=== PATIENT | male | born 1950 | race Caucasian/White ===

== ENCOUNTER 2019-12-31 17:16 | Inpatient (IN) ==
[2019-12-31] MEDS ORDERED: MORPHINE 4 MG/1 ML VIAL IV STA (18:28)
[2019-12-31] MEDS ORDERED: ONDANSETRON 4 MG/2 ML VIAL IV ONE (18:28)
[2019-12-31] MEDS ORDERED: SODIUM CHLORIDE 0.9% 1,000 ML IV STA (18:28)
[2019-12-31 18:37] LABS: Basophils % 0.6 % (0.0-0.8); Eosinophils # 0.1 10*3/uL (0.0-0.87); Eosinophils % 3.8 % (0.00-10.9); Hematocrit 32.5 VOL% (42.0-52.0); Hemoglobin 10.3 GM/DL (14.0-18.0); Immature Granulocytes % 0.9 %; Immature Granulocytes Absolute 0.03 #; Lymphocytes # 0.5 10*3/uL (1.4-4.0); Lymphocytes % 13.9 % (21.2-54.2); Mean Corpuscular HGB Conc 31.7 GM/DL (32-36); Mean Corpuscular Volume 99.4 FL (87-102); Mean Platelet Volume 10.4 FL (9.6-12.0); Neutrophils % 71.8 % (38.7-73.9); Platelet Count 109 T/CUMM (130-400); Red Blood Count 3.27 MC/CUMM (3.8-5.5); Red Cell Distribution Width 16.9 % (9.3-17.3); White Blood Count 3.5 T/CUMM (4-12)
[2019-12-31 18:44] LABS: INR 1.2; PT Patient Result 12.5 SECS (9.8-11.9); Partial Thromboplastin Time 29.8 SECS (23.9-33.8)
[2019-12-31 18:48] LABS: Albumin 2.5 G/DL (3.4-5.0); Bilirubin,Total 1.2 MG/DL (0.2-1.0); Calcium 9.2 MG/DL (8.5-10.1); Total Protein 6.9 G/DL (6.4-8.3)
[2019-12-31] MEDS ORDERED: ZALEPLON 5 MG CAPSULE PO PRN (21:56)
[2019-12-31] MEDS ORDERED: DEXTROSE 50% 25 GM/50 ML VIAL IV PRN ×2 (21:56)
[2019-12-31] MEDS ORDERED: guaiFENesin/DM ER 600-30 MG TABLET PO PRN (21:56)
[2019-12-31] MEDS ORDERED: ONDANSETRON 4 MG/2 ML VIAL IV PRN (21:56)
[2019-12-31] MEDS ORDERED: GLUCAGON 1 MG VIAL IM PRN ×2 (21:56)
[2019-12-31] MEDS ORDERED: NICOTINE 21 MG/24 HR PATCH TRANSDERM PRN (21:56)
[2019-12-31] MEDS ORDERED: diphenhydrAMINE CAP 25 MG CAPSULE PO PRN (21:56)
[2019-12-31] MEDS: MORPHINE 4 MG/1 ML VIAL IV PRN (23:20)
[2019-12-31] MEDS: SODIUM CHLORIDE 0.9% 1,000 ML IV SCH (23:22)
[2020-01-01] MEDS: TACROLIMUS 0.5 MG CAPSULE PO SCH ×4 (02:06→19:12)
[2020-01-01] MEDS: MORPHINE 4 MG/1 ML VIAL IV PRN (05:13)
[2020-01-01 06:56] LABS: Basophils % 0.9 % (0.0-0.8); Eosinophils # 0.3 10*3/uL (0.0-0.87); Eosinophils % 7.5 % (0.00-10.9); Hemoglobin 9.3 GM/DL (14.0-18.0); Immature Granulocytes % 0.2 %; Immature Granulocytes Absolute 0.01 #; Lymphocytes # 0.6 10*3/uL (1.4-4.0); Lymphocytes % 13.6 % (21.2-54.2); Mean Corpuscular HGB Conc 32.1 GM/DL (32-36); Mean Corpuscular Volume 99.7 FL (87-102); Mean Platelet Volume 10.2 FL (9.6-12.0); Monocytes % 8.2 % (1.7-12.7); Neutrophils % 69.6 % (38.7-73.9); Platelet Count 101 T/CUMM (130-400); Red Blood Count 2.91 MC/CUMM (3.8-5.5); Red Cell Distribution Width 16.8 % (9.3-17.3); White Blood Count 4.3 T/CUMM (4-12)
[2020-01-01 07:32] LABS: Calcium 8.9 MG/DL (8.5-10.1); Osmolality,Calculated 280.7 MOS/KG (273-304)
[2020-01-01] MEDS: INSULIN LISPRO 100 UNIT/ML SUBCUT SCH ×4 (08:55→22:13)
[2020-01-01] MEDS ORDERED: LIPASE PROTEASE AMYLASE PO SCH (09:00)
[2020-01-01] MEDS: LACTULOSE 20 GM/30 ML UDCUP PO SCH ×3 (09:00→21:36)
[2020-01-01] MEDS ORDERED: [UNRECOGNIZED DRUG - OTHER] PO SCH (09:00)
[2020-01-01] MEDS: SODIUM CHLORIDE 0.9% 1,000 ML IV SCH (10:30)
[2020-01-01] MEDS: SEVELAMER CARBONATE 800 MG TABLET PO SCH ×3 (11:00→17:57)
[2020-01-01] MEDS: DOCUSATE SODIUM 100 MG CAPSULE PO SCH ×2 (11:00→21:36)
[2020-01-01] MEDS: CETIRIZINE 10 MG TABLET PO SCH ×2 (11:00→21:36)
[2020-01-01] MEDS: PANTOPRAZOLE 40 MG TABLET PO SCH (11:00)
[2020-01-01] MEDS ORDERED: OMEGA 3 ACID ETHYL ESTERS 1 GM CAPSULE PO SCH (11:30)
[2020-01-01] MEDS: RIFAXIMIN 550 MG TABLET PO SCH ×2 (13:19→21:36)
[2020-01-01] MEDS: [UNRECOGNIZED DRUG - OTHER] PO SCH (17:58)
[2020-01-01] MEDS: LIPASE PROTEASE AMYLASE PO SCH (17:58)
[2020-01-02 07:23] LABS: Basophils # 0.1 10*3/uL (0.0-0.2); Basophils % 1.1 % (0.0-0.8); Eosinophils # 0.4 10*3/uL (0.0-0.87); Hematocrit 30.4 VOL% (42.0-52.0); Hemoglobin 9.7 GM/DL (14.0-18.0); Immature Granulocytes % 0.4 %; Immature Granulocytes Absolute 0.02 #; Lymphocytes # 0.6 10*3/uL (1.4-4.0); Lymphocytes % 10.5 % (21.2-54.2); Mean Corpuscular HGB Conc 31.9 GM/DL (32-36); Mean Corpuscular Volume 100.3 FL (87-102); Mean Platelet Volume 10.3 FL (9.6-12.0); Monocytes % 9.1 % (1.7-12.7); Neutrophils % 71.9 % (38.7-73.9); Platelet Count 110 T/CUMM (130-400); Red Blood Count 3.03 MC/CUMM (3.8-5.5); Red Cell Distribution Width 16.8 % (9.3-17.3); White Blood Count 5.6 T/CUMM (4-12)
[2020-01-02 08:03] LABS: Calcium 8.8 MG/DL (8.5-10.1)
[2020-01-02] MEDS: INSULIN LISPRO 100 UNIT/ML SUBCUT SCH ×4 (08:10→23:42)
[2020-01-02] MEDS: LACTULOSE 20 GM/30 ML UDCUP PO SCH ×3 (08:25→23:41)
[2020-01-02] MEDS: TACROLIMUS 0.5 MG CAPSULE PO SCH ×2 (08:25→18:42)
[2020-01-02] MEDS: PANTOPRAZOLE 40 MG TABLET PO SCH (08:26)
[2020-01-02] MEDS: DOCUSATE SODIUM 100 MG CAPSULE PO SCH ×2 (08:26→23:41)
[2020-01-02] MEDS: SEVELAMER CARBONATE 800 MG TABLET PO SCH ×3 (08:26→16:38)
[2020-01-02] MEDS: RIFAXIMIN 550 MG TABLET PO SCH ×2 (08:26→23:41)
[2020-01-02] MEDS: CETIRIZINE 10 MG TABLET PO SCH ×2 (08:27→23:41)
[2020-01-02] MEDS: [UNRECOGNIZED DRUG - OTHER] PO SCH ×3 (08:41→16:38)
[2020-01-02] MEDS: FATTY ACIDS PO SCH (08:41)
[2020-01-02] MEDS: OMEGA PO SCH (08:41)
[2020-01-02] MEDS: LIPASE PROTEASE AMYLASE PO SCH ×3 (08:41→16:38)
[2020-01-02 14:09] LABS: Hepatitis B Core IgM Quant 0.06 Index; Hepatitis B Surface Ag Quant < 0.10 Index; Hepatitis B Surface Ag Result Negative (Negative); Hepatitis C Virus Ab Result Negative (Negative)
[2020-01-03] MEDS: INSULIN LISPRO 100 UNIT/ML SUBCUT SCH ×4 (07:28→21:14)
[2020-01-03] MEDS: LIPASE PROTEASE AMYLASE PO SCH ×4 (08:11→19:16)
[2020-01-03] MEDS: [UNRECOGNIZED DRUG - OTHER] PO SCH ×4 (08:11→19:16)
[2020-01-03] MEDS: CETIRIZINE 10 MG TABLET PO SCH ×2 (08:12→21:14)
[2020-01-03] MEDS: LACTULOSE 20 GM/30 ML UDCUP PO SCH ×3 (08:12→21:12)
[2020-01-03] MEDS: FATTY ACIDS PO SCH (08:12)
[2020-01-03] MEDS: SEVELAMER CARBONATE 800 MG TABLET PO SCH ×3 (08:12→17:50)
[2020-01-03] MEDS: PANTOPRAZOLE 40 MG TABLET PO SCH (08:12)
[2020-01-03] MEDS: RIFAXIMIN 550 MG TABLET PO SCH ×2 (08:12→21:13)
[2020-01-03] MEDS: DOCUSATE SODIUM 100 MG CAPSULE PO SCH ×2 (08:12→21:13)
[2020-01-03] MEDS: OMEGA PO SCH (08:12)
[2020-01-03 08:21] LABS: Basophils # 0.1 10*3/uL (0.0-0.2); Basophils % 0.8 % (0.0-0.8); Eosinophils # 0.1 10*3/uL (0.0-0.87); Eosinophils % 2.2 % (0.00-10.9); Hematocrit 31.7 VOL% (42.0-52.0); Hemoglobin 10.1 GM/DL (14.0-18.0); Immature Granulocytes % 0.5 %; Immature Granulocytes Absolute 0.03 #; Lymphocytes # 0.7 10*3/uL (1.4-4.0); Lymphocytes % 11.5 % (21.2-54.2); Mean Corpuscular HGB Conc 31.9 GM/DL (32-36); Mean Corpuscular Volume 99.1 FL (87-102); Mean Platelet Volume 10.7 FL (9.6-12.0); Monocytes % 8.8 % (1.7-12.7); Neutrophils % 76.2 % (38.7-73.9); Platelet Count 105 T/CUMM (130-400); Red Cell Distribution Width 16.6 % (9.3-17.3); White Blood Count 5.9 T/CUMM (4-12)
[2020-01-03 08:39] LABS: Hypochromasia 1+; Microcytosis 1+; Platelet Estimate Decreased
[2020-01-03 08:41] LABS: Calcium 8.7 MG/DL (8.5-10.1); Osmolality,Calculated 272.5 MOS/KG (273-304)
[2020-01-03] MEDS: TACROLIMUS 0.5 MG CAPSULE PO SCH ×2 (08:46→18:40)
[2020-01-03] MEDS ORDERED: ROPIVACAINE 0.5% 30 ML VIAL ONE (12:54)
[2020-01-03] MEDS ORDERED: ceFAZolin 1,000 MG VIAL ONE (14:05)
[2020-01-03] MEDS ORDERED: VANCOMYCIN 1,000 MG VIAL ONE (14:05)
[2020-01-03] MEDS ORDERED: BACITRACIN 50,000 UNIT VIAL ONE (14:55)
[2020-01-03] MEDS ORDERED: SODIUM CHLORIDE 0.9% 1,000 ML IV PRN (15:56)
[2020-01-03] MEDS ORDERED: SUGAMMADEX 200 MG/2 ML VIAL IV ONE (15:57)
[2020-01-03] MEDS ORDERED: ALBUTEROL/IPRATROPIUM 3 ML NEB RESP TX ONE ×2 (16:21→16:46)
[2020-01-03] MEDS ORDERED: ePHEDrine 50 MG/ML VIAL ONE (16:37)
[2020-01-03] MEDS ORDERED: GLYCOPYRROLATE 0.4 MG/2 ML VIAL ONE (16:37)
[2020-01-03] MEDS ORDERED: LIDOCAINE 2% 5 ML VIAL ONE (16:37)
[2020-01-03] MEDS ORDERED: fentaNYL 100 MCG/2 ML VIAL ONE (16:37)
[2020-01-03] MEDS ORDERED: SEVOFLURANE 1 UNIT/15 MINUTE INH ONE (16:37)
[2020-01-03] MEDS ORDERED: MIDAZOLAM 2 MG/2 ML VIAL ONE (16:37)
[2020-01-03] MEDS ORDERED: ETOMIDATE 40 MG/20 ML VIAL IV ONE (16:37)
[2020-01-03] MEDS ORDERED: PHENYLEPHRINE 10 MG/1 ML VIAL IV ONE (16:37)
[2020-01-03] MEDS ORDERED: NEOSTIGMINE 10 MG/10 ML VIAL ONE (16:38)
[2020-01-03] MEDS ORDERED: SODIUM CHLORIDE 0.9% 250 ML IV ONE (16:38)
[2020-01-03] MEDS ORDERED: ROCURONIUM 100 MG/10 ML VIAL IV ONE (16:38)
[2020-01-03 16:58] LABS: ABG HCO3 20.3 MMOL/L (20-26); ABG Oxygen Saturation 94.8 % (95-100); ABG PCO2 44.8 MM HG (35-48); ABG PH 7.291 (7.35-7.45); ABG PO2 85.7 MM HG (80-95); ABG TCO2 19.8 MMOL/L (23-27)
[2020-01-03] MEDS ORDERED: PHENYLEPHRINE DRIP 40 MG/250 ML PREMIX IV PRN (17:30)
[2020-01-03] MEDS ORDERED: PHENYLEPHRINE DRIP 40 MG/250 ML PREMIX IV ONE (17:37)
[2020-01-03] MEDS: ceFAZolin 1,000 MG in SYRINGE 1 EACH IV SCH (17:47)
[2020-01-03] MEDS: MORPHINE 4 MG/1 ML VIAL IV PRN (19:58)
[2020-01-03 20:51] LABS: Hematocrit 31.6 VOL% (42.0-52.0); Hemoglobin 9.8 GM/DL (14.0-18.0)
[2020-01-03] MEDS: APIXABAN 5 MG TABLET PO SCH (21:12)
[2020-01-04] MEDS: ceFAZolin 1,000 MG in SYRINGE 1 EACH IV SCH ×4 (00:31→18:20)
[2020-01-04] MEDS: MORPHINE 4 MG/1 ML VIAL IV PRN ×2 (04:27→22:06)
[2020-01-04 08:09] LABS: Basophils # 0.1 10*3/uL (0.0-0.2); Basophils % 0.7 % (0.0-0.8); Eosinophils # 0.2 10*3/uL (0.0-0.87); Eosinophils % 1.5 % (0.00-10.9); Hematocrit 31.8 VOL% (42.0-52.0); Hemoglobin 10.5 GM/DL (14.0-18.0); Immature Granulocytes % 0.6 %; Immature Granulocytes Absolute 0.07 #; Lymphocytes # 0.7 10*3/uL (1.4-4.0); Lymphocytes % 6.4 % (21.2-54.2); Mean Platelet Volume 10.3 FL (9.6-12.0); Monocytes % 7.5 % (1.7-12.7); Neutrophils % 83.3 % (38.7-73.9); Platelet Count 146 T/CUMM (130-400); Red Blood Count 3.28 MC/CUMM (3.8-5.5); Red Cell Distribution Width 16.9 % (9.3-17.3); White Blood Count 10.8 T/CUMM (4-12)
[2020-01-04 08:28] LABS: Albumin 2.2 G/DL (3.4-5.0); Calcium 8.8 MG/DL (8.5-10.1); Osmolality,Calculated 275.5 MOS/KG (273-304); Total Protein 6.7 G/DL (6.4-8.3)
[2020-01-04] MEDS: INSULIN LISPRO 100 UNIT/ML SUBCUT SCH ×4 (08:32→21:19)
[2020-01-04] MEDS ORDERED: FLUDROCORTISONE 0.1 MG TABLET PO ONE (10:44)
[2020-01-04] MEDS: RIFAXIMIN 550 MG TABLET PO SCH ×2 (11:00→22:15)
[2020-01-04] MEDS: HYDROCORTISONE 100 MG VIAL IV SCH ×2 (11:27→18:02)
[2020-01-04] MEDS: SEVELAMER CARBONATE 800 MG TABLET PO SCH ×3 (11:38→17:55)
[2020-01-04] MEDS: APIXABAN 5 MG TABLET PO SCH ×3 (11:39→22:13)
[2020-01-04] MEDS: TACROLIMUS 0.5 MG CAPSULE PO SCH ×2 (11:39→18:11)
[2020-01-04] MEDS: PANTOPRAZOLE 40 MG TABLET PO SCH (11:40)
[2020-01-04] MEDS: DOCUSATE SODIUM 100 MG CAPSULE PO SCH ×2 (11:40→21:50)
[2020-01-04] MEDS: OMEGA PO SCH (11:41)
[2020-01-04] MEDS: FATTY ACIDS PO SCH (11:41)
[2020-01-04] MEDS: LACTULOSE 20 GM/30 ML UDCUP PO SCH ×3 (11:41→22:12)
[2020-01-04] MEDS: [UNRECOGNIZED DRUG - OTHER] PO SCH ×3 (12:17→17:52)
[2020-01-04] MEDS: LIPASE PROTEASE AMYLASE PO SCH ×3 (12:17→17:52)
[2020-01-04] MEDS: CETIRIZINE 10 MG TABLET PO SCH ×2 (14:51→21:50)
[2020-01-05] MEDS: ceFAZolin 1,000 MG in SYRINGE 1 EACH IV SCH ×3 (00:25→18:04)
[2020-01-05] MEDS: HYDROCORTISONE 100 MG VIAL IV SCH ×2 (04:22→12:36)
[2020-01-05 04:40] LABS: Basophils % 0.2 % (0.0-0.8); Hematocrit 30.2 VOL% (42.0-52.0); Immature Granulocytes % 0.6 %; Immature Granulocytes Absolute 0.06 #; Lymphocytes # 0.3 10*3/uL (1.4-4.0); Lymphocytes % 2.7 % (21.2-54.2); Mean Corpuscular HGB Conc 33.1 GM/DL (32-36); Mean Corpuscular Volume 96.8 FL (87-102); Mean Platelet Volume 10.5 FL (9.6-12.0); Monocytes % 4.4 % (1.7-12.7); Neutrophils % 92.1 % (38.7-73.9); Platelet Count 144 T/CUMM (130-400); Red Blood Count 3.12 MC/CUMM (3.8-5.5); Red Cell Distribution Width 17.2 % (9.3-17.3); White Blood Count 10.2 T/CUMM (4-12)
[2020-01-05 05:05] LABS: Burr Cells Slight; Hypochromasia Slight; Ovalocytes Slight; Platelet Estimate Adequate; Segmented Neutrophils 96 % (50-85); Total Cells Counted 100
[2020-01-05 05:07] LABS: Calcium 8.6 MG/DL (8.5-10.1); Osmolality,Calculated 272.8 MOS/KG (273-304)
[2020-01-05] MEDS: [UNRECOGNIZED DRUG - OTHER] PO SCH ×3 (08:32→18:04)
[2020-01-05] MEDS: LIPASE PROTEASE AMYLASE PO SCH ×3 (08:32→18:04)
[2020-01-05] MEDS: FATTY ACIDS PO SCH (08:32)
[2020-01-05] MEDS: OMEGA PO SCH (08:32)
[2020-01-05] MEDS: INSULIN LISPRO 100 UNIT/ML SUBCUT SCH ×4 (08:34→21:24)
[2020-01-05] MEDS: PANTOPRAZOLE 40 MG TABLET PO SCH (08:35)
[2020-01-05] MEDS: TACROLIMUS 0.5 MG CAPSULE PO SCH ×2 (08:35→18:04)
[2020-01-05] MEDS: CETIRIZINE 10 MG TABLET PO SCH ×2 (08:35→21:19)
[2020-01-05] MEDS: LACTULOSE 20 GM/30 ML UDCUP PO SCH ×3 (08:35→21:19)
[2020-01-05] MEDS: RIFAXIMIN 550 MG TABLET PO SCH ×2 (08:35→21:19)
[2020-01-05] MEDS: SEVELAMER CARBONATE 800 MG TABLET PO SCH ×3 (08:35→18:04)
[2020-01-05] MEDS: DOCUSATE SODIUM 100 MG CAPSULE PO SCH ×2 (08:37→21:19)
[2020-01-05] MEDS: APIXABAN 5 MG TABLET PO SCH ×2 (08:37→21:19)
[2020-01-06] MEDS: HYDROCORTISONE 100 MG VIAL IV SCH ×2 (00:17→11:31)
[2020-01-06] MEDS: ceFAZolin 1,000 MG in SYRINGE 1 EACH IV SCH ×3 (00:25→17:28)
[2020-01-06] MEDS: TACROLIMUS 0.5 MG CAPSULE PO SCH ×2 (08:31→18:02)
[2020-01-06] MEDS: LACTULOSE 20 GM/30 ML UDCUP PO SCH ×5 (08:31→20:20)
[2020-01-06] MEDS: PANTOPRAZOLE 40 MG TABLET PO SCH (08:31)
[2020-01-06] MEDS: CETIRIZINE 10 MG TABLET PO SCH ×2 (08:31→20:20)
[2020-01-06] MEDS: RIFAXIMIN 550 MG TABLET PO SCH ×2 (08:32→20:20)
[2020-01-06] MEDS: APIXABAN 5 MG TABLET PO SCH ×2 (08:32→20:20)
[2020-01-06] MEDS: FATTY ACIDS PO SCH (08:32)
[2020-01-06] MEDS: SEVELAMER CARBONATE 800 MG TABLET PO SCH ×3 (08:32→17:21)
[2020-01-06] MEDS: OMEGA PO SCH (08:32)
[2020-01-06] MEDS: LIPASE PROTEASE AMYLASE PO SCH ×3 (08:32→17:21)
[2020-01-06] MEDS: DOCUSATE SODIUM 100 MG CAPSULE PO SCH ×2 (08:32→20:20)
[2020-01-06] MEDS: [UNRECOGNIZED DRUG - OTHER] PO SCH ×3 (08:32→17:21)
[2020-01-06] MEDS ORDERED: FLUDROCORTISONE 0.1 MG TABLET PO SCH (09:00)
[2020-01-06] MEDS: INSULIN LISPRO 100 UNIT/ML SUBCUT SCH ×4 (09:04→20:29)
[2020-01-06 16:05] LABS: Hematocrit 27.2 VOL% (42.0-52.0); Hemoglobin 9.1 GM/DL (14.0-18.0); Immature Granulocytes % 0.8 %; Immature Granulocytes Absolute 0.07 #; Lymphocytes # 0.3 10*3/uL (1.4-4.0); Mean Corpuscular HGB Conc 33.5 GM/DL (32-36); Mean Corpuscular Volume 96.5 FL (87-102); Monocytes % 3.6 % (1.7-12.7); Neutrophils % 92.6 % (38.7-73.9); Platelet Count 133 T/CUMM (130-400); Red Blood Count 2.82 MC/CUMM (3.8-5.5); Red Cell Distribution Width 16.9 % (9.3-17.3); White Blood Count 8.6 T/CUMM (4-12)
[2020-01-06] MEDS ORDERED: ALBUMIN 25% 25 GM in PREMIX 1 EACH IV ONE (17:03)
[2020-01-06 17:34] LABS: Burr Cells 4+; Lymphocytes 6 % (20-55); Macrocytosis 1+; Polychromasia 2+; Segmented Neutrophils 91 % (50-85); Total Cells Counted 100
[2020-01-06 17:35] LABS: Anisocytosis 2+; Hypochromasia 2+; Platelet Estimate Adequate; Toxic Granulation 1+
[2020-01-07] MEDS: LACTULOSE 20 GM/30 ML UDCUP PO SCH ×7 (00:15→21:29)
[2020-01-07] MEDS: ceFAZolin 1,000 MG in SYRINGE 1 EACH IV SCH ×3 (00:15→16:17)
[2020-01-07] MEDS: MORPHINE 4 MG/1 ML VIAL IV PRN ×3 (00:15→21:22)
[2020-01-07] MEDS: HYDROCORTISONE 100 MG VIAL IV SCH ×2 (00:23→12:42)
[2020-01-07 06:31] LABS: Calcium 8.3 MG/DL (8.5-10.1); Osmolality,Calculated 271.9 MOS/KG (273-304)
[2020-01-07] MEDS: INSULIN LISPRO 100 UNIT/ML SUBCUT SCH ×4 (09:49→21:32)
[2020-01-07] MEDS: DOCUSATE SODIUM 100 MG CAPSULE PO SCH ×2 (09:50→21:28)
[2020-01-07] MEDS: SEVELAMER CARBONATE 800 MG TABLET PO SCH ×3 (09:50→16:17)
[2020-01-07] MEDS: CETIRIZINE 10 MG TABLET PO SCH ×2 (09:50→21:28)
[2020-01-07] MEDS: PANTOPRAZOLE 40 MG TABLET PO SCH (09:50)
[2020-01-07] MEDS: APIXABAN 5 MG TABLET PO SCH ×2 (09:50→21:28)
[2020-01-07] MEDS: RIFAXIMIN 550 MG TABLET PO SCH ×2 (09:51→21:31)
[2020-01-07] MEDS: OMEGA PO SCH (09:52)
[2020-01-07] MEDS: FATTY ACIDS PO SCH (09:52)
[2020-01-07] MEDS: TACROLIMUS 0.5 MG CAPSULE PO SCH ×2 (09:52→21:31)
[2020-01-07] MEDS: LIPASE PROTEASE AMYLASE PO SCH ×3 (09:53→16:18)
[2020-01-07] MEDS: [UNRECOGNIZED DRUG - OTHER] PO SCH ×3 (09:53→16:18)
[2020-01-08] MEDS: ceFAZolin 1,000 MG in SYRINGE 1 EACH IV SCH ×3 (00:36→17:52)
[2020-01-08] MEDS: HYDROCORTISONE 100 MG VIAL IV SCH (00:41)
[2020-01-08 07:21] LABS: Basophils % 0.2 % (0.0-0.8); Hematocrit 28.2 VOL% (42.0-52.0); Hemoglobin 9.3 GM/DL (14.0-18.0); Immature Granulocytes % 1.5 %; Immature Granulocytes Absolute 0.09 #; Lymphocytes # 0.3 10*3/uL (1.4-4.0); Mean Corpuscular Volume 97.9 FL (87-102); Mean Platelet Volume 9.9 FL (9.6-12.0); Monocytes % 2.8 % (1.7-12.7); NRBC # 0.02 10*3/uL; Neutrophils % 90.5 % (38.7-73.9); Platelet Count 126 T/CUMM (130-400); Red Blood Count 2.88 MC/CUMM (3.8-5.5); Red Cell Distribution Width 17.6 % (9.3-17.3)
[2020-01-08 07:31] LABS: Calcium 8.8 MG/DL (8.5-10.1); Osmolality,Calculated 272.2 MOS/KG (273-304)
[2020-01-08] MEDS: DOCUSATE SODIUM 100 MG CAPSULE PO SCH ×2 (09:59→20:30)
[2020-01-08] MEDS: PANTOPRAZOLE 40 MG TABLET PO SCH (09:59)
[2020-01-08] MEDS: CETIRIZINE 10 MG TABLET PO SCH ×2 (09:59→20:30)
[2020-01-08] MEDS: APIXABAN 5 MG TABLET PO SCH ×2 (09:59→20:30)
[2020-01-08] MEDS: SEVELAMER CARBONATE 800 MG TABLET PO SCH ×3 (09:59→17:54)
[2020-01-08] MEDS: LIPASE PROTEASE AMYLASE PO SCH ×3 (10:00→17:54)
[2020-01-08] MEDS: FATTY ACIDS PO SCH (10:00)
[2020-01-08] MEDS: LACTULOSE 20 GM/30 ML UDCUP PO SCH ×3 (10:00→21:13)
[2020-01-08] MEDS: OMEGA PO SCH (10:00)
[2020-01-08] MEDS: [UNRECOGNIZED DRUG - OTHER] PO SCH ×3 (10:00→17:54)
[2020-01-08] MEDS: RIFAXIMIN 550 MG TABLET PO SCH ×2 (10:01→20:31)
[2020-01-08] MEDS: TACROLIMUS 0.5 MG CAPSULE PO SCH ×2 (10:01→20:32)
[2020-01-08] MEDS: INSULIN LISPRO 100 UNIT/ML SUBCUT SCH ×4 (10:23→20:32)
[2020-01-09] MEDS: ceFAZolin 1,000 MG in SYRINGE 1 EACH IV SCH ×3 (00:53→15:06)
[2020-01-09 06:37] LABS: Basophils % 0.1 % (0.0-0.8); Eosinophils % 0.6 % (0.00-10.9); Hematocrit 28.9 VOL% (42.0-52.0); Hemoglobin 9.7 GM/DL (14.0-18.0); Immature Granulocytes % 3.7 %; Immature Granulocytes Absolute 0.26 #; Lymphocytes # 0.6 10*3/uL (1.4-4.0); Lymphocytes % 8.3 % (21.2-54.2); Mean Corpuscular HGB Conc 33.6 GM/DL (32-36); Mean Platelet Volume 9.8 FL (9.6-12.0); Monocytes % 6.4 % (1.7-12.7); NRBC # 0.04 10*3/uL; Neutrophils % 80.9 % (38.7-73.9); Platelet Count 137 T/CUMM (130-400); Red Blood Count 2.95 MC/CUMM (3.8-5.5)
[2020-01-09 06:55] LABS: Calcium 8.3 MG/DL (8.5-10.1); Osmolality,Calculated 269.5 MOS/KG (273-304)
[2020-01-09] MEDS: INSULIN LISPRO 100 UNIT/ML SUBCUT SCH ×4 (08:12→21:56)
[2020-01-09] MEDS: RIFAXIMIN 550 MG TABLET PO SCH ×2 (09:22→21:31)
[2020-01-09] MEDS: DOCUSATE SODIUM 100 MG CAPSULE PO SCH ×2 (10:04→21:30)
[2020-01-09] MEDS: LIPASE PROTEASE AMYLASE PO SCH ×3 (10:04→17:14)
[2020-01-09] MEDS: [UNRECOGNIZED DRUG - OTHER] PO SCH ×3 (10:04→17:14)
[2020-01-09] MEDS: LACTULOSE 20 GM/30 ML UDCUP PO SCH ×3 (10:04→21:30)
[2020-01-09] MEDS: SEVELAMER CARBONATE 800 MG TABLET PO SCH ×3 (10:04→17:14)
[2020-01-09] MEDS: TACROLIMUS 0.5 MG CAPSULE PO SCH ×2 (10:05→21:31)
[2020-01-09] MEDS: PANTOPRAZOLE 40 MG TABLET PO SCH (10:05)
[2020-01-09] MEDS: CETIRIZINE 10 MG TABLET PO SCH ×2 (10:05→21:31)
[2020-01-09] MEDS: APIXABAN 5 MG TABLET PO SCH ×2 (10:05→21:43)
[2020-01-09] MEDS: FATTY ACIDS PO SCH (10:05)
[2020-01-09] MEDS: OMEGA PO SCH (10:05)
[2020-01-10] MEDS: ceFAZolin 1,000 MG in SYRINGE 1 EACH IV SCH ×3 (00:04→20:18)
[2020-01-10 05:57] LABS: Basophils % 0.3 % (0.0-0.8); Eosinophils # 0.2 10*3/uL (0.0-0.87); Eosinophils % 3.4 % (0.00-10.9); Hematocrit 27.1 VOL% (42.0-52.0); Hemoglobin 9.3 GM/DL (14.0-18.0); Immature Granulocytes % 4.2 %; Immature Granulocytes Absolute 0.29 #; Lymphocytes # 0.6 10*3/uL (1.4-4.0); Lymphocytes % 8.6 % (21.2-54.2); Mean Corpuscular HGB Conc 34.3 GM/DL (32-36); Mean Corpuscular Volume 96.1 FL (87-102); Mean Platelet Volume 9.5 FL (9.6-12.0); Monocytes % 5.6 % (1.7-12.7); NRBC # 0.02 10*3/uL; Neutrophils % 77.9 % (38.7-73.9); Platelet Count 127 T/CUMM (130-400); Red Blood Count 2.82 MC/CUMM (3.8-5.5); Red Cell Distribution Width 17.8 % (9.3-17.3)
[2020-01-10 06:13] LABS: Calcium 8.3 MG/DL (8.5-10.1); Osmolality,Calculated 267.8 MOS/KG (273-304)
[2020-01-10] MEDS: INSULIN LISPRO 100 UNIT/ML SUBCUT SCH ×4 (07:52→21:22)
[2020-01-10] MEDS: DOCUSATE SODIUM 100 MG CAPSULE PO SCH ×2 (09:25→21:21)
[2020-01-10] MEDS: APIXABAN 5 MG TABLET PO SCH ×2 (09:25→21:21)
[2020-01-10] MEDS: CETIRIZINE 10 MG TABLET PO SCH ×2 (09:25→21:20)
[2020-01-10] MEDS: FATTY ACIDS PO SCH (09:25)
[2020-01-10] MEDS: RIFAXIMIN 550 MG TABLET PO SCH ×2 (09:25→21:20)
[2020-01-10] MEDS: SEVELAMER CARBONATE 800 MG TABLET PO SCH ×3 (09:25→17:09)
[2020-01-10] MEDS: OMEGA PO SCH (09:25)
[2020-01-10] MEDS: LIPASE PROTEASE AMYLASE PO SCH ×3 (09:25→17:09)
[2020-01-10] MEDS: PANTOPRAZOLE 40 MG TABLET PO SCH (09:25)
[2020-01-10] MEDS: [UNRECOGNIZED DRUG - OTHER] PO SCH ×3 (09:25→17:09)
[2020-01-10] MEDS: LACTULOSE 20 GM/30 ML UDCUP PO SCH ×6 (09:25→22:22)
[2020-01-10] MEDS: TACROLIMUS 0.5 MG CAPSULE PO SCH ×2 (09:25→21:20)
[2020-01-11] MEDS: LACTULOSE 20 GM/30 ML UDCUP PO SCH ×8 (00:58→22:45)
[2020-01-11 09:00] LABS: Basophils % 0.1 % (0.0-0.8); Eosinophils # 0.2 10*3/uL (0.0-0.87); Eosinophils % 2.5 % (0.00-10.9); Hemoglobin 9.7 GM/DL (14.0-18.0); Immature Granulocytes % 2.4 %; Immature Granulocytes Absolute 0.21 #; Lymphocytes # 0.6 10*3/uL (1.4-4.0); Lymphocytes % 6.6 % (21.2-54.2); Mean Corpuscular HGB Conc 34.6 GM/DL (32-36); Mean Corpuscular Volume 95.6 FL (87-102); Mean Platelet Volume 9.6 FL (9.6-12.0); Monocytes % 5.7 % (1.7-12.7); Neutrophils % 82.7 % (38.7-73.9); Platelet Count 135 T/CUMM (130-400); Red Blood Count 2.93 MC/CUMM (3.8-5.5); White Blood Count 8.7 T/CUMM (4-12)
[2020-01-11] MEDS: [UNRECOGNIZED DRUG - OTHER] PO SCH ×3 (09:07→17:42)
[2020-01-11] MEDS: LIPASE PROTEASE AMYLASE PO SCH ×3 (09:07→17:42)
[2020-01-11] MEDS: INSULIN LISPRO 100 UNIT/ML SUBCUT SCH ×4 (09:07→21:32)
[2020-01-11] MEDS: SEVELAMER CARBONATE 800 MG TABLET PO SCH ×3 (09:08→17:42)
[2020-01-11 09:15] LABS: Calcium 8.2 MG/DL (8.5-10.1); Osmolality,Calculated 264.3 MOS/KG (273-304)
[2020-01-11] MEDS: MULTIVITAMIN (CENTRUM) TABLET PO SCH (10:29)
[2020-01-11] MEDS: APIXABAN 5 MG TABLET PO SCH ×2 (10:29→21:33)
[2020-01-11] MEDS: DOCUSATE SODIUM 100 MG CAPSULE PO SCH ×2 (10:29→21:33)
[2020-01-11] MEDS: PANTOPRAZOLE 40 MG TABLET PO SCH (10:30)
[2020-01-11] MEDS: TACROLIMUS 0.5 MG CAPSULE PO SCH ×2 (10:30→21:33)
[2020-01-11] MEDS: FATTY ACIDS PO SCH (10:30)
[2020-01-11] MEDS: RIFAXIMIN 550 MG TABLET PO SCH ×2 (10:30→21:33)
[2020-01-11] MEDS: CETIRIZINE 10 MG TABLET PO SCH ×2 (10:30→21:33)
[2020-01-11] MEDS: OMEGA PO SCH (10:30)
[2020-01-11] MEDS ORDERED: HEPARIN 1,000 UNIT/1 ML VIAL ONE (12:53)
[2020-01-11] MEDS ORDERED: fentaNYL 100 MCG/2 ML VIAL IV ONE (13:25)
[2020-01-11] MEDS ORDERED: MIDAZOLAM 2 MG/2 ML VIAL IV ONE (13:25)
[2020-01-11] MEDS ORDERED: ALTEPLASE 2 MG VIAL ONE (13:49)
[2020-01-11] MEDS ORDERED: ALBUMIN 25% 25 GM in PREMIX 1 EACH IV PRN (17:40)
[2020-01-11] MEDS ORDERED: HEPARIN 10,000 UNIT/10 ML VIAL IV SCH (17:45)
[2020-01-11] MEDS: SODIUM CHLORIDE 0.45% 1,000 ML IV SCH (21:39)
[2020-01-12] MEDS: LACTULOSE 20 GM/30 ML UDCUP PO SCH ×6 (01:17→21:44)
[2020-01-12 06:15] LABS: Calcium 7.9 MG/DL (8.5-10.1); Osmolality,Calculated 273.2 MOS/KG (273-304)
[2020-01-12 08:01] LABS: Basophils % 0.1 % (0.0-0.8); Eosinophils # 0.1 10*3/uL (0.0-0.87); Eosinophils % 2.1 % (0.00-10.9); Hematocrit 24.4 VOL% (42.0-52.0); Hemoglobin 8.1 GM/DL (14.0-18.0); Immature Granulocytes % 1.9 %; Immature Granulocytes Absolute 0.13 #; Lymphocytes # 0.5 10*3/uL (1.4-4.0); Lymphocytes % 7.1 % (21.2-54.2); Mean Corpuscular HGB Conc 33.2 GM/DL (32-36); Mean Corpuscular Volume 97.2 FL (87-102); Mean Platelet Volume 9.5 FL (9.6-12.0); Neutrophils % 80.8 % (38.7-73.9); Platelet Count 102 T/CUMM (130-400); Red Blood Count 2.51 MC/CUMM (3.8-5.5); Red Cell Distribution Width 18.6 % (9.3-17.3); White Blood Count 6.8 T/CUMM (4-12)
[2020-01-12] MEDS: INSULIN LISPRO 100 UNIT/ML SUBCUT SCH ×4 (08:18→21:45)
[2020-01-12] MEDS: TACROLIMUS 0.5 MG CAPSULE PO SCH ×2 (09:33→21:45)
[2020-01-12] MEDS: SEVELAMER CARBONATE 800 MG TABLET PO SCH ×3 (09:33→17:56)
[2020-01-12] MEDS: RIFAXIMIN 550 MG TABLET PO SCH ×2 (09:33→21:45)
[2020-01-12] MEDS: MULTIVITAMIN (CENTRUM) TABLET PO SCH (09:34)
[2020-01-12] MEDS: FATTY ACIDS PO SCH (09:35)
[2020-01-12] MEDS: [UNRECOGNIZED DRUG - OTHER] PO SCH ×4 (09:35→17:55)
[2020-01-12] MEDS: DOCUSATE SODIUM 100 MG CAPSULE PO SCH ×2 (09:35→21:44)
[2020-01-12] MEDS: LIPASE PROTEASE AMYLASE PO SCH ×4 (09:35→17:55)
[2020-01-12] MEDS: APIXABAN 5 MG TABLET PO SCH ×2 (09:35→21:45)
[2020-01-12] MEDS: CETIRIZINE 10 MG TABLET PO SCH ×2 (09:35→21:45)
[2020-01-12] MEDS: OMEGA PO SCH (09:35)
[2020-01-12] MEDS: PANTOPRAZOLE 40 MG TABLET PO SCH (09:36)
[2020-01-12] MEDS ORDERED: ALBUMIN 25% 12.5 GM/50 ML VIAL IV ONE (13:25)
[2020-01-12] MEDS: SODIUM CHLORIDE 0.45% 1,000 ML IV SCH (16:15)
[2020-01-13] MEDS: INSULIN LISPRO 100 UNIT/ML SUBCUT SCH ×4 (09:33→21:06)
[2020-01-13] MEDS: SEVELAMER CARBONATE 800 MG TABLET PO SCH ×3 (09:34→17:05)
[2020-01-13] MEDS: DOCUSATE SODIUM 100 MG CAPSULE PO SCH ×2 (09:34→21:04)
[2020-01-13] MEDS: LACTULOSE 20 GM/30 ML UDCUP PO SCH ×3 (09:34→21:06)
[2020-01-13] MEDS: CETIRIZINE 10 MG TABLET PO SCH ×2 (09:35→21:08)
[2020-01-13] MEDS: RIFAXIMIN 550 MG TABLET PO SCH ×2 (09:35→21:05)
[2020-01-13] MEDS: APIXABAN 5 MG TABLET PO SCH ×2 (09:35→21:05)
[2020-01-13] MEDS: FATTY ACIDS PO SCH (09:35)
[2020-01-13] MEDS: TACROLIMUS 0.5 MG CAPSULE PO SCH ×2 (09:35→21:05)
[2020-01-13] MEDS: OMEGA PO SCH (09:35)
[2020-01-13] MEDS: PANTOPRAZOLE 40 MG TABLET PO SCH (09:35)
[2020-01-13] MEDS: MULTIVITAMIN (CENTRUM) TABLET PO SCH (09:35)
[2020-01-13] MEDS: LIPASE PROTEASE AMYLASE PO SCH ×3 (09:36→17:06)
[2020-01-13] MEDS: [UNRECOGNIZED DRUG - OTHER] PO SCH ×3 (09:36→17:06)
[2020-01-13] MEDS: SODIUM CHLORIDE 0.45% 1,000 ML IV SCH (14:29)
[2020-01-13] MEDS ORDERED: ALBUMIN 25% 12.5 GM/50 ML VIAL IV ONE (15:11)
[2020-01-14] MEDS: LACTULOSE 20 GM/30 ML UDCUP PO PRN (05:30)
[2020-01-14 05:52] LABS: Eosinophils # 0.1 10*3/uL (0.0-0.87); Eosinophils % 3.4 % (0.00-10.9); Hematocrit 18.9 VOL% (42.0-52.0); Immature Granulocytes % 2.1 %; Immature Granulocytes Absolute 0.08 #; Lymphocytes # 0.4 10*3/uL (1.4-4.0); Lymphocytes % 10.1 % (21.2-54.2); Mean Corpuscular HGB Conc 31.7 GM/DL (32-36); Mean Corpuscular Volume 101.6 FL (87-102); Mean Platelet Volume 9.5 FL (9.6-12.0); Monocytes % 12.5 % (1.7-12.7); Neutrophils % 71.9 % (38.7-73.9); Platelet Count 84 T/CUMM (130-400); Red Blood Count 1.86 MC/CUMM (3.8-5.5); Red Cell Distribution Width 19.1 % (9.3-17.3); White Blood Count 3.8 T/CUMM (4-12)
[2020-01-14 06:15] LABS: Calcium 8.5 MG/DL (8.5-10.1); Hypochromasia 2+; Microcytosis 1+; Osmolality,Calculated 277.4 MOS/KG (273-304); Platelet Estimate Decreased
[2020-01-14] MEDS: INSULIN LISPRO 100 UNIT/ML SUBCUT SCH ×4 (08:45→20:56)
[2020-01-14 09:00] LABS: Eosinophils # 0.1 10*3/uL (0.0-0.87); Eosinophils % 3.4 % (0.00-10.9); Hematocrit 18.9 VOL% (42.0-52.0); Immature Granulocytes % 1.8 %; Immature Granulocytes Absolute 0.07 #; Lymphocytes # 0.4 10*3/uL (1.4-4.0); Lymphocytes % 10.2 % (21.2-54.2); Mean Corpuscular HGB Conc 33.3 GM/DL (32-36); Monocytes % 12.8 % (1.7-12.7); Neutrophils % 71.8 % (38.7-73.9); Platelet Count 82 T/CUMM (130-400); Red Blood Count 1.89 MC/CUMM (3.8-5.5); Red Cell Distribution Width 19.6 % (9.3-17.3); White Blood Count 3.8 T/CUMM (4-12)
[2020-01-14 09:03] LABS: Hemoglobin 6.3 GM/DL (14.0-18.0)
[2020-01-14 10:04] LABS: Hypochromasia 2+; Microcytosis 1+; Ovalocytes Slight; Platelet Estimate Decreased
[2020-01-14] MEDS: LACTULOSE 20 GM/30 ML UDCUP PO SCH ×3 (10:07→20:56)
[2020-01-14] MEDS: SEVELAMER CARBONATE 800 MG TABLET PO SCH ×3 (10:07→16:23)
[2020-01-14] MEDS: OMEGA PO SCH (10:08)
[2020-01-14] MEDS: FATTY ACIDS PO SCH (10:08)
[2020-01-14] MEDS: PANTOPRAZOLE 40 MG TABLET PO SCH (10:08)
[2020-01-14] MEDS: TACROLIMUS 0.5 MG CAPSULE PO SCH ×2 (10:08→20:56)
[2020-01-14] MEDS: CETIRIZINE 10 MG TABLET PO SCH ×2 (10:08→20:55)
[2020-01-14] MEDS: MULTIVITAMIN (CENTRUM) TABLET PO SCH (10:08)
[2020-01-14] MEDS: RIFAXIMIN 550 MG TABLET PO SCH ×2 (10:08→20:56)
[2020-01-14] MEDS: DOCUSATE SODIUM 100 MG CAPSULE PO SCH ×2 (10:08→20:56)
[2020-01-14] MEDS: [UNRECOGNIZED DRUG - OTHER] PO SCH ×3 (10:09→16:23)
[2020-01-14] MEDS: LIPASE PROTEASE AMYLASE PO SCH ×3 (10:09→16:23)
[2020-01-14] MEDS ORDERED: SODIUM CHLORIDE 0.9% 1,000 ML IV PRN (10:52)
[2020-01-14] MEDS: SODIUM CHLORIDE 0.45% 1,000 ML IV SCH (15:23)
[2020-01-14 21:49] LABS: Hemoglobin 7.5 GM/DL (14.0-18.0)
[2020-01-15 06:05] LABS: Basophils % 0.2 % (0.0-0.8); Eosinophils # 0.2 10*3/uL (0.0-0.87); Eosinophils % 4.1 % (0.00-10.9); Hematocrit 21.9 VOL% (42.0-52.0); Hemoglobin 7.1 GM/DL (14.0-18.0); Immature Granulocytes % 3.7 %; Immature Granulocytes Absolute 0.17 #; Lymphocytes # 0.5 10*3/uL (1.4-4.0); Lymphocytes % 10.3 % (21.2-54.2); Mean Corpuscular HGB Conc 32.4 GM/DL (32-36); Mean Corpuscular Volume 99.1 FL (87-102); Mean Platelet Volume 10.7 FL (9.6-12.0); Monocytes % 12.1 % (1.7-12.7); NRBC # 0.02 10*3/uL; Neutrophils % 69.6 % (38.7-73.9); Platelet Count 98 T/CUMM (130-400); Red Blood Count 2.21 MC/CUMM (3.8-5.5); Red Cell Distribution Width 19.4 % (9.3-17.3); White Blood Count 4.6 T/CUMM (4-12)
[2020-01-15 06:07] LABS: INR 1.5; PT Patient Result 16.1 SECS (9.8-11.9)
[2020-01-15 06:14] LABS: Alanine Aminotransferase < 6 U/L (16-61); Alkaline Phosphatase 126 U/L (45-117); Aspartate Amino Transferase 15 U/L (0-37); Blood Urea Nitrogen 48 MG/DL (7-18); Calcium 8.8 MG/DL (8.5-10.1); Estimated Glom Filtration Rate 16 ML/MIN; Glucose 176 MG/DL (74-106); Osmolality,Calculated 278.7 MOS/KG (273-304); Total Protein 5.3 G/DL (6.4-8.3)
[2020-01-15 06:27] LABS: Hypochromasia 2+; Microcytosis 1+; Platelet Estimate Decreased
[2020-01-15] MEDS: INSULIN LISPRO 100 UNIT/ML SUBCUT SCH ×4 (10:15→21:08)
[2020-01-15] MEDS: TACROLIMUS 0.5 MG CAPSULE PO SCH ×2 (10:16→21:07)
[2020-01-15] MEDS: LACTULOSE 20 GM/30 ML UDCUP PO SCH ×3 (10:16→21:08)
[2020-01-15] MEDS: FATTY ACIDS PO SCH (10:17)
[2020-01-15] MEDS: DOCUSATE SODIUM 100 MG CAPSULE PO SCH ×2 (10:17→21:08)
[2020-01-15] MEDS: CETIRIZINE 10 MG TABLET PO SCH ×2 (10:17→21:07)
[2020-01-15] MEDS: PANTOPRAZOLE 40 MG TABLET PO SCH (10:17)
[2020-01-15] MEDS: RIFAXIMIN 550 MG TABLET PO SCH (10:17)
[2020-01-15] MEDS: MULTIVITAMIN (CENTRUM) TABLET PO SCH (10:17)
[2020-01-15] MEDS: OMEGA PO SCH (10:17)
[2020-01-15] MEDS: SEVELAMER CARBONATE 800 MG TABLET PO SCH ×3 (10:17→16:01)
[2020-01-15] MEDS: [UNRECOGNIZED DRUG - OTHER] PO SCH ×3 (10:18→16:01)
[2020-01-15] MEDS: LIPASE PROTEASE AMYLASE PO SCH ×3 (10:18→16:01)
[2020-01-15] MEDS: SODIUM CHLORIDE 0.45% 1,000 ML IV SCH (15:14)
[2020-01-16] MEDS: LACTULOSE 20 GM/30 ML UDCUP PO PRN (00:33)
[2020-01-16 05:29] LABS: Basophils % 0.3 % (0.0-0.8); Eosinophils # 0.2 10*3/uL (0.0-0.87); Eosinophils % 3.2 % (0.00-10.9); Hematocrit 22.9 VOL% (42.0-52.0); Hemoglobin 7.4 GM/DL (14.0-18.0); Immature Granulocytes % 2.7 %; Immature Granulocytes Absolute 0.16 #; Lymphocytes # 0.5 10*3/uL (1.4-4.0); Lymphocytes % 8.3 % (21.2-54.2); Mean Corpuscular HGB Conc 32.3 GM/DL (32-36); Mean Corpuscular Volume 100.4 FL (87-102); Mean Platelet Volume 10.5 FL (9.6-12.0); Monocytes % 11.1 % (1.7-12.7); Neutrophils % 74.4 % (38.7-73.9); Platelet Count 107 T/CUMM (130-400); Red Blood Count 2.28 MC/CUMM (3.8-5.5); Red Cell Distribution Width 19.6 % (9.3-17.3); White Blood Count 5.9 T/CUMM (4-12)
[2020-01-16 05:55] LABS: Osmolality,Calculated 277.9 MOS/KG (273-304)
[2020-01-16] MEDS: LIPASE PROTEASE AMYLASE PO SCH ×3 (09:00→20:21)
[2020-01-16] MEDS: SEVELAMER CARBONATE 800 MG TABLET PO SCH ×3 (09:00→20:21)
[2020-01-16] MEDS: [UNRECOGNIZED DRUG - OTHER] PO SCH ×3 (09:00→20:21)
[2020-01-16] MEDS: LACTULOSE 20 GM/30 ML UDCUP PO SCH ×5 (10:06→20:22)
[2020-01-16] MEDS: INSULIN LISPRO 100 UNIT/ML SUBCUT SCH ×3 (10:55→20:20)
[2020-01-16] MEDS: TACROLIMUS 0.5 MG CAPSULE PO SCH ×2 (12:52→20:21)
[2020-01-16] MEDS: CETIRIZINE 10 MG TABLET PO SCH ×2 (12:52→20:21)
[2020-01-16] MEDS: OMEGA PO SCH (12:53)
[2020-01-16] MEDS: DOCUSATE SODIUM 100 MG CAPSULE PO SCH ×2 (12:53→20:21)
[2020-01-16] MEDS: PANTOPRAZOLE 40 MG TABLET PO SCH (12:53)
[2020-01-16] MEDS: FATTY ACIDS PO SCH (12:53)
[2020-01-16] MEDS: MULTIVITAMIN (CENTRUM) TABLET PO SCH (12:53)
[2020-01-16 16:02] VITALS: BP 81/36
== END 2020-01-16 21:36 | DRG 521 ==
LOC: EDUNIT# → EDBD → N.ED 17:16 → SUATTDRO 21:56 → N.EDINP 21:56 → N.3E 22:26 → N.ICU 01-03 16:37 → N.TELEN 01-06 19:25
PROVIDERS: ADMIT Internal Medicine; ATTEND Internal Medicine

== ENCOUNTER 2020-01-31 20:58 | Inpatient (IN) ==
[2020-01-31] MEDS ORDERED: PANTOPRAZOLE INJ 80 MG in SODIUM CHLORIDE 0.9% 100 ML IV STA (21:21)
[2020-01-31] MEDS ORDERED: PANTOPRAZOLE 40 MG VIAL IV ONE (21:49)
[2020-01-31 21:53] LABS: Basophils % 0.9 % (0.0-0.8); Eosinophils # 0.1 10*3/uL (0.0-0.87); Eosinophils % 3.6 % (0.00-10.9); Hematocrit 23.7 VOL% (42.0-52.0); Hemoglobin 7.8 GM/DL (14.0-18.0); Immature Granulocytes % 1.2 %; Immature Granulocytes Absolute 0.04 #; Lymphocytes # 0.5 10*3/uL (1.4-4.0); Mean Corpuscular HGB Conc 32.9 GM/DL (32-36); Mean Corpuscular Volume 96.7 FL (87-102); Mean Platelet Volume 8.9 FL (9.6-12.0); Monocytes % 20.1 % (1.7-12.7); Neutrophils % 59.2 % (38.7-73.9); Platelet Count 226 T/CUMM (130-400); Red Blood Count 2.45 MC/CUMM (3.8-5.5); Red Cell Distribution Width 18.9 % (9.3-17.3); White Blood Count 3.3 T/CUMM (4-12)
[2020-01-31 22:12] LABS: Alanine Aminotransferase < 6 U/L (16-61); Albumin 1.7 G/DL (3.4-5.0); Alkaline Phosphatase 186 U/L (45-117); Aspartate Amino Transferase 14 U/L (0-37); Blood Urea Nitrogen 30 MG/DL (7-18); Calcium 8.9 MG/DL (8.5-10.1); Estimated Glom Filtration Rate 24 ML/MIN; Glucose 132 MG/DL (74-106); Osmolality,Calculated 277.1 MOS/KG (273-304); Total Protein 5.9 G/DL (6.4-8.3)
[2020-01-31 22:30] LABS: Band Neutrophils 1 % (0-10); Eosinophils 2 % (0-10); Lymphocytes 14 % (20-55); Segmented Neutrophils 70 % (50-85); Total Cells Counted 100
[2020-01-31 22:31] LABS: Hypochromasia 3+
[2020-01-31 22:32] LABS: Platelet Estimate Normal
[2020-01-31 22:33] LABS: Burr Cells 2+
[2020-01-31] MEDS ORDERED: SODIUM CHLORIDE 0.9% 1,000 ML IV PRN (23:16)
[2020-01-31 23:24] LABS: INR 1.4; PT Patient Result 14.4 SECS (9.8-11.9); Partial Thromboplastin Time 48.1 SECS (23.9-33.8)
[2020-02-01] MEDS ORDERED: MORPHINE 4 MG/1 ML VIAL IV PRN (01:51)
[2020-02-01] MEDS ORDERED: ALBUTEROL 2.5 MG/3 ML NEB RESP TX PRN (01:51)
[2020-02-01] MEDS ORDERED: ONDANSETRON 4 MG/2 ML VIAL IV PRN (01:51)
[2020-02-01] MEDS ORDERED: NOREPINEPHRINE 8 MG in SODIUM CHLORIDE 0.9% 242 ML IV SCH (02:00)
[2020-02-01] MEDS ORDERED: NOREPINEPHRINE 8 MG in SODIUM CHLORIDE 0.9% 242 ML IV PRN (02:30)
[2020-02-01] MEDS: LACTULOSE 20 GM/30 ML UDCUP PO SCH ×2 (03:16→08:31)
[2020-02-01 04:31] LABS: Eosinophils # 0.1 10*3/uL (0.0-0.87); Eosinophils % 4.2 % (0.00-10.9); Hematocrit 25.9 VOL% (42.0-52.0); Hemoglobin 8.3 GM/DL (14.0-18.0); Immature Granulocytes Absolute 0.03 #; Lymphocytes # 0.4 10*3/uL (1.4-4.0); Lymphocytes % 15.2 % (21.2-54.2); Mean Corpuscular Volume 96.3 FL (87-102); Mean Platelet Volume 8.9 FL (9.6-12.0); Monocytes % 20.1 % (1.7-12.7); Neutrophils % 58.5 % (38.7-73.9); Platelet Count 196 T/CUMM (130-400); Red Blood Count 2.69 MC/CUMM (3.8-5.5); Red Cell Distribution Width 18.5 % (9.3-17.3); White Blood Count 2.9 T/CUMM (4-12)
[2020-02-01 04:44] LABS: INR 1.4; PT Patient Result 14.6 SECS (9.8-11.9)
[2020-02-01 04:50] LABS: Eosinophils 3 % (0-10); Lymphocytes 18 % (20-55); Platelet Estimate Adequate; Segmented Neutrophils 69 % (50-85); Total Cells Counted 100
[2020-02-01 04:51] LABS: Hypochromasia 1+; Microcytosis Slight
[2020-02-01 05:07] LABS: Alanine Aminotransferase < 6 U/L (16-61); Albumin 1.8 G/DL (3.4-5.0); Alkaline Phosphatase 175 U/L (45-117); Aspartate Amino Transferase 15 U/L (0-37); Blood Urea Nitrogen 32 MG/DL (7-18); Calcium 8.9 MG/DL (8.5-10.1); Estimated Glom Filtration Rate 23 ML/MIN; Glucose 136 MG/DL (74-106); Osmolality,Calculated 281.8 MOS/KG (273-304); Total Protein 5.8 G/DL (6.4-8.3); Troponin I 0.026 NG/ML (0.00-0.045)
[2020-02-01] MEDS: HYDROCORTISONE 100 MG VIAL IV SCH ×2 (05:55→18:59)
[2020-02-01] MEDS ORDERED: [UNRECOGNIZED DRUG - OTHER] PO SCH (07:30)
[2020-02-01] MEDS ORDERED: LIPASE PROTEASE AMYLASE PO SCH (07:30)
[2020-02-01] MEDS ORDERED: PANTOPRAZOLE 40 MG VIAL IV SCH (09:00)
[2020-02-01] MEDS ORDERED: TACROLIMUS 0.5 MG CAPSULE PO SCH ×2 (09:00→19:00)
[2020-02-01] MEDS ORDERED: RIFAXIMIN 550 MG TABLET PO SCH (09:00)
[2020-02-01] MEDS ORDERED: SEVELAMER CARBONATE 800 MG TABLET PO SCH (12:00)
[2020-02-01 13:39] LABS: Hematocrit 26.9 VOL% (42.0-52.0); Hemoglobin 8.7 GM/DL (14.0-18.0)
[2020-02-01] MEDS ORDERED: SODIUM CHLORIDE 0.9% 1,000 ML IV PRN (17:24)
[2020-02-01 20:00] VITALS: BP 101/69
== END 2020-02-01 19:45 | disposition hospice, home (50) | DRG 813 ==
LOC: EDBD → EDUNIT# → N.ED 20:58 → N.EDINP 02-01 01:33 → SUATTDRO 02-01 01:33 → N.EDINP 02-01 19:45
PROVIDERS: ADMIT Internal Medicine; ATTEND Internal Medicine